=== PATIENT | female | born 1975 | race Caucasian/White ===

== ENCOUNTER → 2017-07-30 | Outpatient (CLI) | payer BC | LOC: CIMAGING 09:53 | PROVIDERS: ATTEND Family Medicine | DX: Z12.31 Encounter for screening mammogram for malignant neoplasm of breast (principal) | CPT/HCPCS: G0202 ==

== ENCOUNTER 2018-08-30 05:43 | Day surgery (SDC) | payer OTHER ==
[2018-08-30] MEDS ORDERED: LR 1,000 ML IV ONE (06:01)
[2018-08-30] MEDS ORDERED: SILVER NITRATE APPLICATOR 1 APPL TP ONE (07:01)
[2018-08-30] MEDS ORDERED: OPIUM/BELLADONNA ALKALO SUPP PR ONE (07:01)
[2018-08-30] MEDS ORDERED: BUPIVACAINE/EPI 0.25% 30 ML SDV ONE (07:01)
[2018-08-30] MEDS ORDERED: MIDAZOLAM 2 MG/2 ML VIAL ONE (07:08)
[2018-08-30] MEDS ORDERED: MIDAZOLAM 2 MG/2 ML VIAL IVP ONE (07:12)
--- NOTE | 2018-08-30 07:13 | PDANEPAE ---
ANE Past Medical History - Cardiovascular History Hx Hypertension: No Hx Arrhythmias: No Hx Chest Pain: No Hx Coronary Artery / Peripheral Vascular Disease: No Hx CHF / Valvular Disease: No Hx Palpitations: No - Pulmonary History Hx COPD: No Hx Asthma/Reactive Airway Disease: Yes Hx Recent Upper Respiratory Infection: No Hx Oxygen in Use at Home: No Hx Sleep Apnea: Yes Sleep Apnea Screening Result - Last Documented: Negative Pulmonary History Comment: mild exertion-based asthma- rescue inhaler- instructed patient to bring - Neurologic History Hx Cerebrovascular Accident: No Hx Seizures: No Hx Dementia: No - Endocrine History Hx Diabetes: No Obesity: no - Renal History Hx Renal Disorders: No - Liver History Hx Hepatic Disorders: No - Neurological & Psychiatric Hx Hx Neurological and Psychiatric Disorders: No - Cancer History Hx Cancer: No - Congenital Disorder History Hx Congenital Disorders: No - GI History GERD: no Hx Gastrointestinal Disorders: No - Other Health History Other Health History: hx of eczema- no issues currently. lichens planus - Chronic Pain History Chronic Pain: No - Surgical History Prior Surgeries: d&c 06/06/11. plantar fasciotomy- right foot 10/2016. lipoma on right shoulder 2014. tonsillectomy 2004 ANE Review of Systems Review of Systems: - Exercise capacity METS (RN): 4 METS ANE Patient History - Allergies Allergies/Adverse Reactions: clindamycin [Clindamycin] Allergy (Verified 08/23/18 11:35) Rash Sulfa (Sulfonamide Antibiotics) Allergy (Verified 08/23/18 11:35) Hives - Home Medications Home Medications: Albuterol Sulfate PRN 08/23/18 [Last Taken 07/31/18] - NPO status NPO Status: no food or drink >8 hours NPO Since - Liquids (Date): 08/29/18 NPO Since - Liquids (Time): 18:00 NPO Since - Solids (Date): 08/30/18 NPO Since - Solids (Time): 20:00 - Anes Hx Anes Hx: no prior problems - Smoking Hx Smoking Status: Never smoked - Family Anes Hx Family Hx Anesthesia Complications: none ANE Labs/Vital Signs - Vital Signs Blood Pressure: 103/65 Heart Rate: 71 Respiratory Rate: 16 O2 Sat (%): 96 Height: 167.64 cm Weight: 64.864 kg ANE Physical Exam - Airway Neck exam: FROM Mallampati Score: Class 1 Mouth exam: normal dental/mouth exam - Pulmonary Pulmonary: no respiratory distress, no rales or rhonchi, clear to auscultation - Cardiovascular Cardiovascular: regular rate and rhythym, no murmur, rub, or gallop - ASA Status ASA Status: II ANE Anesthesia Plan Anesthesia Plan: GA w LMA
--- NOTE | 2018-08-30 07:14 | PDGENHP ---
History & Physical Chief Complaint: DUB History of Present Illness: 43 yo who I met in clinic regarding abnormal uterine bleeding. Discussed options. She had an US that was showed appropriate uterine size for ablation if desired, no fibroids. Had up to date pap and EBX that I performed in the office on 07/22/18 that was benign with features suggestive of polyp. She elected for HSC with polypectomy/sampling and endometrial ablation. Pertinent Past, Social, Family History: Non-contributory Relevant Physical Exam: NAD, RRR, LCTAB Assessment & Plan Assessment: Preop: HSC, sampling/polypectomy, ablation. - No abx, home same day. - Rx for pain meds and dc instructions from PACU. [place]
[2018-08-30] MEDS ORDERED: OPIUM/BELLADONNA ALKALO SUPP PR PRN (07:18)
[2018-08-30] MEDS ORDERED: ONDANSETRON 4 MG/2 ML VIAL ONE (07:24)
[2018-08-30] MEDS ORDERED: PROPOFOL 200 MG/20 ML VIAL ONE (07:24)
[2018-08-30] MEDS ORDERED: DEXAMETHASONE 4 MG/ML VIAL ONE ×2 (07:24)
[2018-08-30] MEDS ORDERED: fentaNYL 100 MCG/2 ML INJ ONE ×2 (07:24→09:52)
[2018-08-30] MEDS ORDERED: ALBUTEROL 3 ML DEYVIAL IH PRN (07:46)
[2018-08-30] MEDS ORDERED: fentaNYL 100 MCG/2 ML INJ IVP PRN (07:46)
[2018-08-30] MEDS ORDERED: LR 500 ML IV PRN (07:46)
[2018-08-30] MEDS ORDERED: ACETAMINOPHEN 500 MG TAB PO PRN (07:46)
[2018-08-30] MEDS ORDERED: HYDROCODONE/APAP 5/325 TAB PO PRN (07:46)
[2018-08-30] MEDS ORDERED: NALOXONE HCL 0.4 MG/ML INJ IVP PRN (07:46)
[2018-08-30] MEDS ORDERED: oxyCODONE IR 5 MG TAB PO PRN (07:46)
[2018-08-30] MEDS ORDERED: PROMETHAZINE HCL 25 MG/ML INJ IVP PRN (07:46)
[2018-08-30] MEDS ORDERED: ONDANSETRON 4 MG/2 ML VIAL IVP PRN (07:46)
[2018-08-30] MEDS ORDERED: MEPERIDINE 25 MG/0.5 ML AMP IVP PRN (07:46)
[2018-08-30] MEDS ORDERED: KETOROLAC 30 MG/1 ML SDV ONE (08:02)
[2018-08-30] MEDS ORDERED: VANCOMYCIN 1 GM VIAL ONE (08:24)
--- NOTE | 2018-08-30 08:29 | SUROPNOTE ---
[place] Operative Report - Surgery Date of Operation: 08/30/18 Surgeon: Dilshad Solano Custodian Supervisor: None Anesthesiologist: Estevan Figueroa Anesthesia: LMA Pre-op Diagnosis: DUB, endometrial polyp on EBX Post-op Diagnosis: Same Procedure: Diagnostic hysteroscopy, endometrial sampling, Anupama ablation Findings: Small uterine polyp mid-body posterior aspect, otherwise WNL anatomy Inf/Abcess present in the surg proc area at time of surgery?: No EBL: Minimal Total fluids administered: Deficit 270cc Complications: None Specimen(s): Endometrial sampling Technique: The patient was taken to the operating room where her identity and planned procedure were confirmed during timeout. The patient was placed under general anesthesia without issue w LMA. When anesthesia was found to be adequate, the patient was prepped and draped in the normal sterile fashion in dorsal lithotomy position in Abner stirrups. No antibiotics were indicated nor given. The patient had voided just prior to OR so straight cath was not necessary. Bimanual exam showed retroverted uterus. [place] speculum placed in the vagina and anterior lip of the cervix grasped with single-tooth tenaculum. A paracervical block was placed with 5cc of local anesthetic with epi at 4:00 and 8:00 locations at the cervico-vaginal junction - 10cc total. The cervix was carefully serially dilated first to allow uterine sound measurement, then to 6mm to allow TruClear hysteroscope. Dilation proceeded easily with no concerns for injury to the uterus. Scope inserted and findings noted as above. The TruClear device was used to remove any polypoid lesions and sample other surrounding endometrium. The scope was removed and prepared for ablation. A large Monae dilator was then advanced to the inner cervical os to measure the cervical length. The Anupama device was inserted to the fundus and cavity assessment initiated and passed. Treatment cycle initiated and full 120 seconds completed - successful ablation cycle. The hysteroscope was reinserted following ablation and confirmed uniform burn on all surfaces. The tenaculum was removed from the cervix and the tenaculum sites were found to be hemostatic. Sponge, lap, needle , and instrument counts were announced as as correct. B&O suppository placed at the conclusion of the case. Fluid deficit 270cc. I was scrubbed and present for the entire procedure.
--- NOTE | 2018-08-30 08:44 | POSTANESTH ---
Post Anesthetic Evaluation Cardiovascular Status: Normal, Stable, Similar to Pre-Op Cond Respiratory Status: Normal, Stable, Similar to Pre-op Cond. Level of Consciousness/Mental Status: Can Participate in Eval, Alert and Oriented Pain Control: Adequate, Prn Tx Ordered Nausea/Vomiting Control: Adequate, Prn Tx Ordered Complications Possibly Related to Anesthesia: None Noted
[2018-08-30] MEDS ORDERED: HYDROCODONE/APAP 5/325 TAB ONE ×2 (09:13→09:45)
[2018-08-30 09:19] VITALS: BP 111/60
== END 2018-08-30 10:28 | disposition home or self-care (01) ==
LOC: FSGY 05:43
PROVIDERS: ATTEND Obstetrics & Gynecology
DX: N93.8 Other specified abnormal uterine and vaginal bleeding (principal); N84.0 Polyp of corpus uteri; Z88.2 Allergy status to sulfonamides
CPT/HCPCS: 58563; C1782; J1100; J1885; J2250; J2405; J2704; J3010; J3370